=== PATIENT | female | born 1990 | race Caucasian/White ===

== ENCOUNTER → 2018-01-05 18:14 | Outpatient (CLI) | payer BC, SELFPAY ==
[2018-01-21 13:25] LABS: HPV Reflexed? NOT INDICATED
== END ==
PROVIDERS: Visit Provider Obstetrics & Gynecology
DX: Z12.4 Encounter for screening for malignant neoplasm of cervix (principal)
CPT/HCPCS: 88175; G0145; J2405

== ENCOUNTER 2018-01-11 13:49 | Inpatient (IN) | payer BC, SELFPAY ==
--- NOTE | 2018-01-11 15:15 | US_ITS ---
STUDY: ABDOMINAL ULTRASOUND - RIGHT UPPER QUADRANT REASON FOR VISIT: Female, 27 years old. Right upper quadrant pain. TECHNIQUE: Ultrasound evaluation of the right upper quadrant was performed with real-time and static dunne-scale imaging. TECHNICAL QUALITY: Adequate. COMPARISON: None. FINDINGS: Liver: The liver measures 13.4 cm. There is normal echogenicity of the liver. The bile ducts are within normal limits. There is hepatic color flow. The direction of portal flow is hepatopetal. There is no demonstrated mass lesion. Gallbladder: Normal distended gallbladder. The gallbladder wall measures 2.5 mm. There is a negative sonographic Aranda's sign. There is no pericholecystic fluid. There are gallstones. Common Bile Duct (C.B.D.): The common bile duct measures 2.9 mm. Pancreas: Normal size of the head, body and tail of the pancreas. There is normal echogenicity of the pancreas. There is no demonstrated pancreatic mass or cyst. Right Kidney: Normal size of the right kidney. The right kidney measures 11.2 cm in length. Normal renal cortex. The right cortex measures 1.2 cm. There is no demonstrated renal mass or cyst. There is no right hydronephrosis. US/Abdomen Limited IMPRESSION: Cholelithiasis with no associated gallbladder wall thickening nor pericholecystic fluid. Electronically Signed: Josselyn Newberry MD at 17:22 EDT Tel , Service support ,
--- NOTE | 2018-01-11 20:00 | DT_ITS ---
This patient was seen during an EMR downtime January 11, 2018 - January 18, 2018. This patient may have a combination of paper and electronic documentation or all paper documentation. All documentation is viewable within the e-chart portion of [employer] for each patient visit.
--- NOTE | 2018-01-13 | GALL_PTH ---
PATIENT: CARMELA EMERY LOC: MS2 U#:[id number] AGE/SX: 27/F ROOM: [facility] [place] [facility] [place] RE01/11/[address]: Dr. Yvon Quigley MD : 1990 BED: 1 DIS: 01/12/2018 SPEC #: [id number] RECD: 01/13/18 11:56 STATUS: TONG JOVITA #: [id number] ANT: 01/13/18 00:[address]: Yvon Quigley DEPT: SURGICAL PATHOLOGY RECD BY: Bruno Ivory ENTERED: 01/14/18 11:56 SP TYPE: NOAH HENDERSON DR: No Primary Care Phys Tissues: Gallbladder, NOS Procedures: Surgery Specimen Level III HEADER OPERATION: Cholecystectomy PRE-OP DIAGNOSIS: TISSUE SUBMITTED: Gallbladder MICROSCOPIC DIAGNOSIS Gallbladder: Chronic cholecystitis and cholelithiasis. SJ:abisai 01/15/18 MICROSCOPIC DESCRIPTION Slides are reviewed. GROSS DESCRIPTION Received is one container labeled with the patient's name and designated gallbladder. The specimen consists of a gallbladder measuring 8 cm in length and 3 cm in diameter. The external surface is pink-godinez, smooth and glistening for the most part. Focally it is granular, hemorrhagic and contains cautery artifact. The gallbladder contains green-yellow mucoid bile and three greenish, irregular stones measuring in aggregate 2.5 x 2 x 1 cm and 1 to 1.5 cm in greatest dimension. The mucosa is bile-stained and without any mass lesions. The gallbladder wall measures 0.2 cm in thickness. Insole And Outsole Preparer sections from the gallbladder and the cystic duct are submitted in one cassette. / SJ:rg 01/13/18 TC:3 CPT: 03803
[2018-01-14 10:56] LABS: ALB/GLOB Ratio 1.2 RATIO (0.9-2.4); AST(SGOT) 7 U/L (15-37); Alanine Aminotransfer ALT/SGPT 11 U/L (13-56); Albumin, Serum 3.7 g/dL (3.2-5.0); Alkaline Phosphatase 60 U/L (45-117); Anion Gap 6 (5-15); BUN 6 mg/dL (7-18); BUN/Creat Ratio 9.4 RATIO (10-20); Calcium,Total 8.3 mg/dL (8.5-10.1); Chloride 109 mmol/L (98-107); Creatinine, Serum 0.64 mg/dL (0.55-1.02); EST Glomerular Filtration Rate 117 mL/min (>60); Est Glom Filt Rate - Afr Amer 142 mL/min (>60); Globulin 3.1 g/dL (2.2-4.2); Glucose 80 mg/dL (74-106); Potassium 3.7 mmol/L (3.5-5.1); Protein, Total 6.8 g/dL (6.4-8.2); Sodium Level 140 mmol/L (136-145)
[2018-01-14 11:50] LABS: Pregnancy, Serum, hCG Quali. NEGATIVE Negative (0-9 Nonpreg)
[2018-01-14 18:20] LABS: Color, Urine Yellow (Yellow)
[2018-01-14 18:21] LABS: Bacteria RARE /hpf (None Seen); Glucose, Dipstick NEGATIVE (Normal); Ketone-Dipstick Negative (Negative); Leukocyte Esterase-Dipstick Trace /ul (Negative); Mucous, Urine 1+ /hpf (<or=2+); Nitrite-Dipstick Positive (Negative); Occult Blood-Urine 50 /ul (Negative); Protein-Dipstick Negative (Negative); Red Blood Cells-Urine 0-5 SEEN /hpf (0-5); Specific Gravity, Urine 1.025 (1.002-1.030); Squamous Epithelial Cells - UA 5-10 SEEN /hpf (5-10); Urine Bilirubin Dipstick Negative (Negative); Urine Clarity Sl Cldy (Clear); Urine Urobilinogen Normal (Normal); White Blood Cells 0-5 SEEN /hpf (0-5)
[2018-01-15 08:37] LABS: Lipase 74 U/L (73-393)
[2018-01-15 10:24] LABS: Hematocrit 39.6 % (37-47); Mean Corp Hgb Conc 32.8 g/gl (32-36); Mean Corpuscular Hgb 28.8 pg (27.0-32.0); Mean Corpuscular Volume 87.6 fL (81-99); Mean Platelet Vol. 10.4 fl (6.2-12.0); POSITIVE COUNT NO; POSITIVE DIFFERENTIAL NO; POSITIVE MORPHOLOGY NO; Platelet Count 288 K/mm3 (150-450); RBC Distribution Width CV 13.3 % (11.6-14.6); RBC Distribution Width SD 41.4 fl (35.1-43.9); Red Blood Count 4.52 M/mm3 (4.2-5.4); White Blood Count 12.1 K/mm3 (4.4-11.0)
[2018-01-15 10:25] LABS: Absolute Neutrophil Count 10.1 X10^3/uL (2.0-7.7); Basophil# 0.02 X10^3/uL; Basophil% 0.2 % (0-1); Eosinophil# 0.21 X10^3/uL; Eosinophils% 1.7 % (0-5); Lymphocyte % 9.9 % (19-41); Monocyte# 0.58 X10^3/uL; Monocyte% 4.8 % (0-10); Neutrophil # 10.11 X10^3/uL (2.7-7.7); Neutrophil % 83.4 % (47-70)
[2018-01-15 10:27] LABS: Internal QC Validated? YES +Cl - CLEAR BKGD; Pregnancy, Urine Negative Negative
--- NOTE | 2018-02-08 09:22 | ED.VISSUMM ---
- ER Visit Summary Date of Service: 02/08/18 Chief Complaint: [Abdominal pain] History of Present Illness: The patient is a 27 F [presents the emergency department with complaint of abdominal pain that started about a week ago. Patient currently rates her pain a 5 out of 10. Patient states the pain is right upper quadrant and radiates to her back. Patient states the pain typically worse after eating. Patient describes nausea and has had one episode of vomiting. Patient also today started with diarrhea and is had 7 watery stools. Patient denies any fever. Patient denies urinary symptoms. Patient does not believe she is .] Physical Examination: [HEENT-PERRLA, EOMI. Cranial nerves II through XII grossly intact. TMs clear. Mucous membranes moist. No adenopathy. Cardiovascular-regular rate and rhythm without murmur or ectopy Lungs-clear to auscultation, chest wall stable without crepitus or subcu emphysema Abdomen-normoactive bowel sounds, soft. Patient has tenderness to the right upper quadrant with some guarding. Patient does have a positive Aranda sign. There is no rebound, rigidity, or peritoneal signs. Extremities-intact ?4, normal range of motion, normal pulses, atraumatic] Test Results: [CBC with differential showed a white blood cell count of 12.1, hemoglobin 13, hematocrit 39.6, platelets 288. Chemistries unremarkable. LFTs unremarkable. Alk phos was 60. Urinalysis was positive for nitrites but only 0-5 WBCs. HCG was negative. Gallbladder ultrasound showed multiple gallstones with a slightly thickened gallbladder wall 4 mm and common bile duct was 3 mm. Emergency Department Course and Treatment: [Patient case was discussed with Dr. Ila Yen will evaluate patient for admission] Treatment Plan: [Admit for possible cholecystectomy] Disposition: [Admit] Impression: [Abdominal pain Cholelithiasis with cholecystitis] This note was generated with [employer] dictation software. It may contain incorrect words, spelling, and punctuation that were not noted in review of the chart prior to signing ED Disposition - Plan for ED Patient: Disposition: Home or Assisted Living
--- NOTE | 2018-02-08 09:27 | ED.DCSUM_ITS ---
- ER Visit Summary Date of Service: 02/08/18 Chief Complaint: [Abdominal pain] History of Present Illness: The patient is a 27 F [presents the emergency department with complaint of abdominal pain that started about a week ago. Patient currently rates her pain a 5 out of 10. Patient states the pain is right upper quadrant and radiates to her back. Patient states the pain typically worse after eating. Patient describes nausea and has had one episode of vomiting. Patient also today started with diarrhea and is had 7 watery stools. Patient denies any fever. Patient denies urinary symptoms. Patient does not believe she is .] Physical Examination: [HEENT-PERRLA, EOMI. Cranial nerves II through XII grossly intact. TMs clear. Mucous membranes moist. No adenopathy. Cardiovascular-regular rate and rhythm without murmur or ectopy Lungs-clear to auscultation, chest wall stable without crepitus or subcu emphysema Abdomen-normoactive bowel sounds, soft. Patient has tenderness to the right upper quadrant with some guarding. Patient does have a positive Aranda sign. There is no rebound, rigidity, or peritoneal signs. Extremities-intact ?4, normal range of motion, normal pulses, atraumatic] Test Results: [CBC with differential showed a white blood cell count of 12.1, hemoglobin 13, hematocrit 39.6, platelets 288. Chemistries unremarkable. LFTs unremarkable. Alk phos was 60. Urinalysis was positive for nitrites but only 0 -5 WBCs. HCG was negative. Gallbladder ultrasound showed multiple gallstones with a slightly thickened gallbladder wall 4 mm and common bile duct was 3 mm. Emergency Department Course and Treatment: [Patient case was discussed with Dr. Ila Yen will evaluate patient for admission] Treatment Plan: [Admit for possible cholecystectomy] Disposition: [Admit] Impression: [Abdominal pain Cholelithiasis with cholecystitis] This note was generated with [employer] dictation software. It may contain incorrect words, spelling, and punctuation that were not noted in review of the chart prior to signing ED Disposition - Plan for ED Patient: Disposition: Home or Assisted Living
== END 2018-01-12 15:25 | disposition home or self-care (01) | DRG 419 ==
LOC: ED 01-13 12:10 → PCU 01-13 14:31 → MS2 01-14 11:47
PROVIDERS: Emergency Medicine; Surgery; Admitting Provider Family Medicine; Emergency Provider Emergency Medicine; Visit Provider Family Medicine
DX: K80.12 Calculus of gallbladder with acute and chronic cholecystitis without obstruction (principal); F17.210 Nicotine dependence, cigarettes, uncomplicated
CPT/HCPCS: 36415; 76705; 80053; 81001; 81025; 83690; 84703; 85025; 88304; 99284; J7120; A4216